=== PATIENT | male | born 1950 | race Caucasian/White ===

== ENCOUNTER → 2016-05-13 | Outpatient (REF) | payer MEDICARE, OTHER ==
[~2016-05-13] MED LIST: AMLO10TA2 PO; ASPI1TAB PO; BACT800T5 PO; SIMV20TA2 PO; VITMTA PO
[2016-05-13 12:34] LABS: ALBUMIN 3.6 GM/DL (3.2-5.2); ALBUMIN/GLOBULIN RATIO 1.09 (1.00-1.93); ALKALINE PHOSPHATASE 56 U/L (45-117); ALT/SGPT 34 U/L (12-78); ANION GAP 8 MEQ/L (8-16); AST/SGOT 28 U/L (15-37); BILIRUBIN,TOTAL 0.4 MG/DL (0.2-1.0); BLOOD UREA NITROGEN 13 MG/DL (7-18); CALCIUM LEVEL 8.8 MG/DL (8.8-10.2); CARBON DIOXIDE LEVEL 28 MEQ/L (21-32); CHLORIDE LEVEL 107 MEQ/L (98-107); CHOLESTEROL LEVEL 178 MG/DL (<200); CREATININE FOR GFR 0.92 MG/DL (0.70-1.30); GLOMERULAR FILTRATION RATE > 60.0 (>49); GLUCOSE, FASTING 94 MG/DL (80-110); SODIUM LEVEL 143 MEQ/L (136-145); TOTAL PROTEIN 6.9 GM/DL (6.4-8.2); TRIGLYCERIDES LEVEL 132 MG/DL (<150)
== END ==
LOC: M LABDRAW1 11:30
PROVIDERS: ATTEND Emergency Medicine
DX: I10 Essential (primary) hypertension (principal); E78.2 Mixed hyperlipidemia; N40.3 Nodular prostate with lower urinary tract symptoms
CPT/HCPCS: 36415; 80053; 80061; G0103

== ENCOUNTER → 2016-08-20 | Outpatient (REF) | payer MEDICARE, OTHER ==
[2016-08-23 20:35] LABS: PSA TOTAL 2.5 ng/mL (0.0-4.0)
== END ==
LOC: M LABDRAW1 11:26
PROVIDERS: ATTEND Urology
DX: R97.20 Elevated prostate specific antigen [PSA] (principal)

== ENCOUNTER → 2017-05-26 | Outpatient (REF) | payer MEDICARE, OTHER ==
[2017-05-26 12:40] LABS: ALBUMIN 3.9 GM/DL (3.2-5.2); ALBUMIN/GLOBULIN RATIO 1.15 (1.00-1.93); ALKALINE PHOSPHATASE 61 U/L (45-117); ALT/SGPT 26 U/L (12-78); ANION GAP 5 MEQ/L (8-16); AST/SGOT 23 U/L (7-37); BILIRUBIN,TOTAL 0.4 MG/DL (0.2-1.0); BLOOD UREA NITROGEN 15 MG/DL (7-18); CALCIUM LEVEL 8.9 MG/DL (8.8-10.2); CARBON DIOXIDE LEVEL 28 MEQ/L (21-32); CHLORIDE LEVEL 110 MEQ/L (98-107); CHOLESTEROL LEVEL 160 MG/DL (<200); CHOLESTEROL RISK RATIO 2.962 (<5); GLOMERULAR FILTRATION RATE > 60.0 (>49); GLUCOSE, FASTING 94 MG/DL (70-100); HDL CHOLESTEROL 54 MG/DL (>40); LDL CHOLESTEROL 83.8 MG/DL (<100); NON-HDL-C 106 MG/DL; POTASSIUM SERUM 4.1 MEQ/L (3.5-5.1); SODIUM LEVEL 143 MEQ/L (136-145); TOTAL PROTEIN 7.3 GM/DL (6.4-8.2); TRIGLYCERIDES LEVEL 111 MG/DL (<150)
== END ==
LOC: M LABDRAW1 11:40
DX: E78.2 Mixed hyperlipidemia (principal); I10 Essential (primary) hypertension
CPT/HCPCS: 80053

== ENCOUNTER → 2017-12-29 | Outpatient (CLI) | payer MEDICARE, OTHER ==
[2017-12-29 08:26] LABS: PROSTATIC SPECIFIC AG MONITOR 2.3 NG/ML (< 4.0)
== END ==
LOC: M LAB 07:20
DX: N42.89 Other specified disorders of prostate (principal)
CPT/HCPCS: G0103

== ENCOUNTER → 2018-05-25 | Outpatient (REF) | payer MEDICARE, OTHER ==
[~2018-05-25] MED LIST changes: -AMLO10TA2 PO; +AMLO10TA5 PO; -ASPI1TAB PO; +ASPI81TA26 PO
[2018-05-25 11:14] LABS: ALT/SGPT 29 U/L (12-78); BILIRUBIN,TOTAL 0.4 MG/DL (0.2-1.0); BLOOD UREA NITROGEN 17 MG/DL (7-18); CALCIUM LEVEL 9.1 MG/DL (8.8-10.2); CARBON DIOXIDE LEVEL 27 MEQ/L (21-32); CHLORIDE LEVEL 108 MEQ/L (98-107); CHOLESTEROL LEVEL 145 MG/DL (<200); CHOLESTEROL RISK RATIO 2.636 (<5); CREATININE FOR GFR 0.89 MG/DL (0.70-1.30); GLOMERULAR FILTRATION RATE > 60.0 (>49); GLUCOSE, FASTING 101 MG/DL (70-100); HDL CHOLESTEROL 55 MG/DL (>40); LDL CHOLESTEROL 75 MG/DL (<100); NON-HDL-C 90 MG/DL; POTASSIUM SERUM 4.4 MEQ/L (3.5-5.1); PROSTATIC SPECIFIC AG MONITOR 2.62 NG/ML (< 4.00); SODIUM LEVEL 140 MEQ/L (136-145); TOTAL PROTEIN 6.8 GM/DL (6.4-8.2); TRIGLYCERIDES LEVEL 77 MG/DL (<150)
== END ==
LOC: M LABDRAW1 10:35
PROVIDERS: ATTEND Physician Assistant
DX: I10 Essential (primary) hypertension (principal); E78.2 Mixed hyperlipidemia; R97.20 Elevated prostate specific antigen [PSA]

== ENCOUNTER → 2018-09-28 | Outpatient (REF) | payer MEDICARE, OTHER ==
[2018-09-28 12:30] LABS: BASO % 0.6 % (0.0-1.0); EOS # 0.3 10^3/uL (0.0-0.50); EOS % 6.3 % (0.0-3.0); HEMATOCRIT 42.8 % (42.0-52.0); LYMPH # 1.5 10^3/uL (1.5-4.5); LYMPH % 30.8 % (24.0-44.0); MEAN CORPUSCULAR HEMOGLOBIN 29.2 pg (27.0-33.0); MEAN CORPUSCULAR HGB CONC 32.7 g/dl (32.0-36.5); MEAN CORPUSCULAR VOLUME 89.2 fl (80.0-96.0); MONO # 0.6 10^3/uL (0.0-0.8); MONO % 12.1 % (0.0-5.0); NEUTROPHILS # 2.4 10^3/uL (1.8-7.7); PLATELET COUNT, AUTOMATED 323 10^3/uL (150-450); WHITE BLOOD COUNT 4.8 10^3/uL (4.0-10.0)
[2018-09-28 12:44] LABS: ALT/SGPT 39 U/L (12-78); BILIRUBIN,TOTAL 0.4 MG/DL (0.2-1.0); BLOOD UREA NITROGEN 23 MG/DL (7-18); CALCIUM LEVEL 9.5 MG/DL (8.8-10.2); CARBON DIOXIDE LEVEL 31 MEQ/L (21-32); CHLORIDE LEVEL 103 MEQ/L (98-107); CREATININE FOR GFR 0.95 MG/DL (0.70-1.30); GLOMERULAR FILTRATION RATE > 60.0 (>49); GLUCOSE, FASTING 97 MG/DL (70-100); POTASSIUM SERUM 3.9 MEQ/L (3.5-5.1); SODIUM LEVEL 140 MEQ/L (136-145); TOTAL PROTEIN 7.1 GM/DL (6.4-8.2)
== END ==
LOC: M LABDRAW1 11:39
PROVIDERS: ATTEND Physician Assistant
DX: I10 Essential (primary) hypertension (principal); R53.83 Other fatigue

== ENCOUNTER → 2019-04-22 | Outpatient (REF) | payer MEDICARE, OTHER ==
[~2019-04-22] MED LIST changes: -SIMV20TA2 PO; +SIMV20TA22 PO
[2019-04-22 11:22] LABS: ALBUMIN 3.9 GM/DL (3.2-5.2); ALT/SGPT 34 U/L (12-78); BILIRUBIN,TOTAL 0.4 MG/DL (0.2-1.0); BLOOD UREA NITROGEN 13 MG/DL (7-18); CALCIUM LEVEL 9.1 MG/DL (8.8-10.2); CARBON DIOXIDE LEVEL 29 MEQ/L (21-32); CHLORIDE LEVEL 108 MEQ/L (98-107); CHOLESTEROL LEVEL 170 MG/DL (<200); CHOLESTEROL RISK RATIO 3.148 (<5); CREATININE FOR GFR 0.88 MG/DL (0.70-1.30); FREE T4 1.12 NG/DL (0.76-1.46); GLOMERULAR FILTRATION RATE > 60.0 (>49); GLUCOSE, FASTING 110 MG/DL (70-100); HDL CHOLESTEROL 54 MG/DL (>40); LDL CHOLESTEROL 88 MG/DL (<100); NON-HDL-C 116 MG/DL; POTASSIUM SERUM 4.3 MEQ/L (3.5-5.1); PROSTATIC SPECIFIC AG MONITOR 2.43 NG/ML (< 4.00); SODIUM LEVEL 141 MEQ/L (136-145); TOTAL PROTEIN 7.3 GM/DL (6.4-8.2); TRIGLYCERIDES LEVEL 138 MG/DL (<150)
== END ==
LOC: M LABDRAW1 07:50
PROVIDERS: ATTEND Physician Assistant
DX: I10 Essential (primary) hypertension (principal); R97.20 Elevated prostate specific antigen [PSA]; E03.9 Hypothyroidism, unspecified

== ENCOUNTER → 2019-08-11 | Outpatient (CLI) | payer MEDICARE, OTHER ==
[2019-08-11 11:36] LABS: THYROID STIMULATING HORMONE 6.03 uIU/ML (0.358-3.740)
== END ==
LOC: M LAB 09:56
PROVIDERS: ATTEND Physician Assistant
DX: E03.9 Hypothyroidism, unspecified (principal)

== ENCOUNTER → 2020-01-17 | Outpatient (CLI) | payer SELFPAY ==
[~2020-01-17] MED LIST changes: -AMLO10TA5 PO; +AMLO1TAB25 PO
== END ==
LOC: M LABSMTC 09:25
PROVIDERS: ATTEND Pediatrics
DX: Z11.59 Encounter for screening for other viral diseases (principal)

== ENCOUNTER → 2020-02-16 | Outpatient (CLI) | payer MEDICARE, OTHER ==
[2020-02-16 10:42] LABS: FREE T4 0.97 NG/DL (0.76-1.46); PROSTATIC SPECIFIC AG MONITOR 3.02 NG/ML (< 4.00); THYROID STIMULATING HORMONE 7.62 uIU/ML (0.358-3.740)
== END ==
LOC: M LAB 09:41
PROVIDERS: ATTEND Nurse Practitioner Family
DX: E03.9 Hypothyroidism, unspecified (principal); R97.20 Elevated prostate specific antigen [PSA]

== ENCOUNTER 2020-02-27 15:30 | Emergency (ER) | payer MEDICARE, OTHER ==
[~2020-02-27] VITALS: Ht 172.7 cm; Wt 84.1 kg
--- OUTSIDE RECORDS SUMMARY | 2020-02-27 15:38 | CCD ---
Author Author [facility] Organization [facility] Address Unknown Phone Unavailable Care Team Providers Care Telephone Surveyor Name Role Phone Scordo, M Mindy PA Unavailable Unavailable Scordo, M Mindy PA Unavailable Unavailable Scordo, M Mindy PA Unavailable Unavailable Scordo, M Mindy PA Unavailable Unavailable Scordo, M Mindy PA Unavailable Unavailable Scordo, M Mindy PA Unavailable Unavailable Scordo, M Mindy PA Unavailable Unavailable Scordo, M Mindy PA Unavailable Unavailable Scordo, M Mindy PA Unavailable Unavailable Scordo, M Mindy PA Unavailable Unavailable Scordo, M Mindy PA Unavailable Unavailable Scordo, M Mindy PA Unavailable Unavailable Scordo, M Mindy PA Unavailable Unavailable Scordo, M Mindy PA Unavailable Unavailable Scordo, M Mindy PA Unavailable Unavailable Scordo, M Mindy PA Unavailable Unavailable Scordo, M Mindy PA Unavailable Unavailable Scordo, M Mindy PA Unavailable Unavailable Scordo, M Mindy PA Unavailable Unavailable Scordo, M Mindy PA Unavailable Unavailable Scordo, M Mindy PA Unavailable Unavailable Scordo, M Mindy PA Unavailable Unavailable Scordo, M Mindy PA Unavailable Unavailable Scordo, M Mindy PA Unavailable Unavailable Scordo, M Mindy PA Unavailable Unavailable Scordo, M Mindy PA Unavailable Unavailable Scordo, M Mindy PA Unavailable Unavailable Scordo, M Mindy PA Unavailable Unavailable Scordo, M Mindy PA Unavailable Unavailable Scordo, M Mindy PA Unavailable Unavailable Scordo, M Mindy PA Unavailable Unavailable Scordo, M Mindy PA Unavailable Unavailable Scordo, M Mindy PA Unavailable Unavailable Scordo, M Mindy PA Unavailable Unavailable Scordo, M Mindy PA Unavailable Unavailable Scordo, M Mindy PA Unavailable Unavailable Scordo, M Mindy PA Unavailable Unavailable Scordo, M Mindy PA Unavailable Unavailable Scordo, M Mindy PA Unavailable Unavailable Scordo, M Mindy PA Unavailable Unavailable Pleskach, Simin EARLY INTERVENTION SPECIALIST Unavailable Unavailable Pleskach, Simin EARLY INTERVENTION SPECIALIST Unavailable Unavailable Pleskach, Simin EARLY INTERVENTION SPECIALIST Unavailable Unavailable Pleskach, Simin EARLY INTERVENTION SPECIALIST Unavailable Unavailable Pleskach, Simin EARLY INTERVENTION SPECIALIST Unavailable Unavailable Pleskach, Simin EARLY INTERVENTION SPECIALIST Unavailable Unavailable Pleskach, Simin EARLY INTERVENTION SPECIALIST Unavailable Unavailable Pleskach, Simin EARLY INTERVENTION SPECIALIST Unavailable Unavailable Pleskach, Simin EARLY INTERVENTION SPECIALIST Unavailable Unavailable Pleskach, Simin EARLY INTERVENTION SPECIALIST Unavailable Unavailable Pleskach, Simin EARLY INTERVENTION SPECIALIST Unavailable Unavailable Pleskach, Simin EARLY INTERVENTION SPECIALIST Unavailable Unavailable Pleskach, Simin EARLY INTERVENTION SPECIALIST Unavailable Unavailable Pleskach, Simin EARLY INTERVENTION SPECIALIST Unavailable Unavailable Pleskach, Simin EARLY INTERVENTION SPECIALIST Unavailable Unavailable Pleskach, Simin EARLY INTERVENTION SPECIALIST Unavailable Unavailable Pleskach, Simin EARLY INTERVENTION SPECIALIST Unavailable Unavailable Pleskach, Simin EARLY INTERVENTION SPECIALIST Unavailable Unavailable Pleskach, Simin EARLY INTERVENTION SPECIALIST Unavailable Unavailable Pleskach, Simin EARLY INTERVENTION SPECIALIST Unavailable Unavailable Pleskach, Simin EARLY INTERVENTION SPECIALIST Unavailable Unavailable Pleskach, Simin EARLY INTERVENTION SPECIALIST Unavailable Unavailable Pleskach, Simin EARLY INTERVENTION SPECIALIST Unavailable Unavailable Pleskach, Simin EARLY INTERVENTION SPECIALIST Unavailable Unavailable Pleskach, Simin EARLY INTERVENTION SPECIALIST Unavailable Unavailable Pleskach, Simin EARLY INTERVENTION SPECIALIST Unavailable Unavailable Pleskach, Simin EARLY INTERVENTION SPECIALIST Unavailable Unavailable Pleskach, Simin EARLY INTERVENTION SPECIALIST Unavailable Unavailable Re-disclosure Warning The records that you are about to access may contain information from federally-assisted alcohol or drug abuse programs. If such information is present, then the following federally mandated warning applies: This information has been disclosed to you from records protected by federal confidentiality rules (42 CFR part 2). The federal rules prohibit you from making any further disclosure of this information unless further disclosure is expressly permitted by the written consent of the person to whom it pertains or as otherwise permitted by 42 CFR part 2. A general authorization for the release of medical or other information is NOT sufficient for this purpose. The Federal rules restrict any use of the information to criminally investigate or prosecute any alcohol or drug abuse patient.The records that you are about to access may contain highly sensitive health information, the redisclosure of which is protected by Article 27-F of the [facility] Public Health law. If you continue you may have access to information: Regarding HIV / AIDS; Provided by facilities licensed or operated by the [facility] Office of Mental Health; or Provided by the [facility] Office for People With Developmental Disabilities. If such information is present, then the following [facility] mandated warning applies: This information has been disclosed to you from confidential records which are protected by state law. State law prohibits you from making any further disclosure of this information without the specific written consent of the person to whom it pertains, or as otherwise permitted by law. Any unauthorized further disclosure in violation of state law may result in a fine or nursing home sentence or both. A general authorization for the release of medical or other information is NOT sufficient authorization for further disc losure. Family History Family Member Name Family Member Gender Family Member Status Date o f Status Description Data Source(s) Unknown Unknown Problem [facility] ([facility] Unknown Female Problem [facility] ([facility] ) Unknown Female Problem [facility] ([facility] [place]) Encounters Encounter Providers Location Date Indications Data Source(s ) Outpatient Attender: Simin Gu [facility] Main Office 11/16/2019 0 8:30:00 AM EDT [facility] ([facility] Outpatient Attender: Mindy REYNA Main Office 08/19/2019 09:00:00 AM EDT [facility] ([facility] Outpatient Attender: Mindy REYNA Main Office 06/02/2019 09:45:00 AM EDT [facility] ([facility] Outpatient Attender: Mindy REYNA Main Office 01/04/2019 06:30:00 AM EST [facility] ([facility] Immunizations Vaccine Date Status Description Data Source(s) INFLUENZA VACCINE QUADRIVALENT 2020-21 (65 YR UP)/MF59 C.1/PF 11/10/2019 12:00:00 AM EDT completed [facility] New in 2012. IIV4 11/09/2019 08:34:00 AM EDT completed [facility] ([facility] pneumococcal polysaccharide PPV23 08/19/2019 09:37:00 AM EDT comple contreras [facility] ([facility] Medications Medication Brand Name Start Date Product Form Dose Route Admi nistrative Instructions Pharmacy Instructions Status Indications Reaction Description Data Source(s) 25 mg 10/10/2019 12:00:00 AM EDT tablet 30 TAKE 1 TABLET BY MOUTH 3 TIMES A DAY NEEDED FOR ITCHING/HIVES FOR 10 DAYS MAY CAUSE DROWSINESS TAKE 1 TABLET BY MOUTH 3 TIMES A DAY NEEDED FOR ITCHING/HIVES FOR 10 DAYS MAY CAUSE DROWSINESS SOLD: 10/10/2019 [facility] Levothyroxine Sodium 0.025 MG Oral Tablet Levothyroxine Sodi um 01/04/2019 12:00:00 AM EST ORAL active M [facility] ([facility] Levothyroxine Sodium 0.025 MG Oral Tablet Levothyroxine Sodi um 10/04/2018 12:00:00 AM EDT completed [facility] ([facility] Insurance Providers Payer name Policy type / Coverage type Policy ID Covered constitution party ID Covered constitution party's relationship to sampson Policy Sampson Plan Information MEDICARE [id number] SP [id number] FOR LIFE [id number] SP [id number] SELF PAY ONLY [id number] SP [id number] [place] Medigap Part B [id number] Self [id number] For Life Medigap Part B [id number] Self [id number] Medicare Medigap Part B [id number] Self [id number] Medicare Medicare Primary [id number] Self [id number] For Life Medigap Part B [id number] [facility] [id number] [place] Primary [id number] Self [id number] MEDICARE [id number] SP [id number] A [place] Medigap Part B [id number] Self [id number] For Life Medigap Part B [id number] Self [id number] Medicare Medigap Part B [id number] Self [id number] Medicare Medicare Primary [id number] Self [id number] [place] Medigap Part B [id number] Self [id number] For Life Medigap Part B [id number] Self [id number] Medicare Medicare Primary [id number] Self [id number] For Life Medigap Part B [id number] Self [id number] Medicare [place] Medicare Primary [id number] Self [id number] [place] Medigap Part B [id number] Self [id number] For Life Medigap Part B [id number] Self [id number] Medicare Medicare Primary [id number] Self [id number] [place] Medigap Part B [id number] Self [id number] For Life Medigap Part B [id number] Self [id number] Medicare Medicare Primary [id number] Self [id number] For Life Medigap Part B [id number] Self [id number] [place] Medicare Primary [id number] Self [id number] For Life Medigap Part B [id number] Self [id number] [place] Medicare Primary [id number] Self [id number] Medicare [place] Medicare Primary Self Health Net Federal [employer] Commercial Self [place] [employer] (TFL) Medigap Part B Self Medicare [facility] Medicare Primary Self Medicare Medicare Primary Self ACTIVE DUTY [id number] SP [id number] Results ID Date Data Source [id number] 02/16/2020 09:48:00 AM EST [facility] ([facility] Name Value Range Interpretation Code Description Data Bianca rce(s) Supporting Document(s) Prostate specific Ag [Mass/volume] in Serum or Plasma 3.02 ng/mL [facility] The PSA assay is performed on the Labelby.meta analyzer by LOCI sandwich chemiluminescent immunoassay and should not be compared interchangeably with other methods. It should not be used alone as a screening test or diagnosis for the presence or absence of malignant disease. Predictions of disease recurrence should not be based solely on values obtained from serial patient serum values. ID Date Data Source [id number] 02/16/2020 09:48:00 AM EST [facility] Name Value Range Interpretation Code Description Data Bianca rce(s) Supporting Document(s) Thyrotropin [Units/volume] in Serum or Plasma 7.620 uIU/ML 0.358-3.74 0 [facility] Thyroxine (T4) free [Mass/volume] in Serum or Plasma 0.97 ng/dL 0.76- 1.46 [facility] ID Date Data Source [id number] 01/17/2020 12:00:00 AM EST [facility] Name Value Range Interpretation Code Description Data Bianca rce(s) Supporting Document(s) 2019-nCoV RNA XXX JUAN JOSÉ+probe-Imp [facility] This lab was ordered by [facility] and reported by [employer]. ID Date Data Source [id number] 08/11/2019 10:21:00 AM EDT [facility] Name Value Range Interpretation Code Description Data Bianca rce(s) Supporting Document(s) Thyroxine (T4) [Mass/volume] in Serum or Plasma 11.0 ug/dL 4.5-12.0 [facility] Thyrotropin [Units/volume] in Serum or Plasma 6.030 uIU/ML 0.358-3.74 0 [facility] ID Date Data Source [id number] 04/22/2019 07:50:00 AM EDT [facility] ([facility] Name Value Range Interpretation Code Description Data Bianca rce(s) Supporting Document(s) Free T4 1.12 ng/dL 0.76-1.46 [facility] ([facility] Thyroid Stimulating Hormone 9.930 uIU/ML 0.358-3.740 [facility] ID Date Data Source [id number] 04/22/2019 07:50:00 AM EDT [facility] Name Value Range Interpretation Code Description Data Bianca rce(s) Supporting Document(s) Prostate specific Ag [Mass/volume] in Serum or Plasma 2.43 ng/mL [facility] The PSA assay is performed on the Güven[employer]hberi analyzer by LOCI sandwich chemiluminescent immunoassay and should not be compared interchangeably with other methods. It should not be used alone as a screening test or diagnosis for the presence or absence of malignant disease. Predictions of disease recurrence should not be based solely on values obtained from serial patient serum values. ID Date Data Source [id number] 04/22/2019 07:50:00 AM EDT [facility] Name Value Range Interpretation Code Description Data Bianca rce(s) Supporting Document(s) Triglycerides Level 138 mg/dL [facility] Cholesterol Level 170 mg/dL [facility] LDL Cholesterol 88 mg/dL [facility] HDL Cholesterol 54 mg/dL [facility] Non-HDL-C 116 mg/dL [facility] Cholesterol Risk Ratio 3.148 [facility] ID Date Data Source [id number] 04/22/2019 07:50:00 AM EDT [facility] Name Value Range Interpretation Code Description Data Bianca rce(s) Supporting Document(s) Blood Urea Nitrogen 13 mg/dL 7-18 [facility] Glucose, Fasting 110 mg/dL 70-100 [facility] Creatinine For GFR 0.88 mg/dL 0.70-1.30 [facility] Glomerular Filtration Rate Laboratory test result [facility] <content>Units are mL/min/1.73 m2</content>
<content></content>
<content>Chronic Kidney Disease Staging per NKF:</content>
<content></content>
<content>Stage I & II GFR >=60 Normal to Mildly Decreased</content>
<content>Stage III GFR 30- 59 Moderately Decreased</content>
<content>Stage IV GFR 15-29 Severely Decreased</content>
<content>Stage V GFR <15 Very Little GFR Left</content>
<content>ESRD GFR <15 on AMBULATORY CARE COORDINATOR</content>
<content></content> Potassium Serum 4.3 meq/L 3.5-5.1 [facility] Sodium Level 141 meq/L 136-145 [facility] Anion Gap 4 meq/L 8-16 [facility] Carbon Dioxide Level 29 meq/L 21-32 [facility] Chloride Level 108 meq/L 98-107 [facility] Calcium Level 9.1 mg/dL 8.8-10.2 [facility] Ast/Sgot 22 U/L 7-37 [facility] Alkaline Phosphatase 65 U/L 45-117 [facility] Bilirubin,Total 0.4 mg/dL 0.2-1.0 [facility] Alt/SGPT 34 U/L 12-78 [facility] Albumin 3.9 GM/DL 3.2-5.2 [facility] Total Protein 7.3 GM/DL 6.4-8.2 [facility] Albumin/Globulin Ratio 1.15 1.00-1.93 ME [facility] ([facility] Procedure Social History Code Duration Value Status Description Data Source(s ) Smoking 11/16/2019 12:00:00 AM EDT Patient has never smoked co mpleted Patient has never smoked [facility] Vital Signs ID Date Data Source UNK Name Value Range Interpretation Code Description Data Source(s) Body mass index (BMI) [Ratio] 28.2 kg/m2 28.2 k g/m2 [facility] [place] body weight 148 [lb_av] 148 [lb_av] [facility] T ([facility] Oxygen saturation in Arterial blood by Pulse oximetry 98 % 98 % [facility] Body weight 184.00 [lb_av] 184.00 [lb_av] [facility] T [facility] Body height 67.75 [in_i] 67.75 [in_i] [facility] 5'7.75" Respiratory rate 18 /min 18 /min [facility] ( [facility] Body temperature 97.5 [degF] 97.5 [degF] [facility] Heart rate 81 /min 81 /min [facility] Diastolic blood pressure 76 mm[Hg] 76 mm[Hg] [facility] Systolic blood pressure 142 mm[Hg] 142 mm[Hg] M [facility] Body mass index (BMI) [Ratio] 28.4 kg/m2 28.4 k g/m2 [facility] [place] body weight 148 [lb_av] 148 [lb_av] [facility] T [facility] Oxygen saturation in Arterial blood by Pulse oximetry 98 % 98 % [facility] Body weight 185.50 [lb_av] 185.50 [lb_av] [facility] T ([facility] Body height 67.75 [in_i] 67.75 [in_i] [facility] 5'7.75" Respiratory rate 18 /min 18 /min [facility] ( [facility] Body temperature 98.6 [degF] 98.6 [degF] [facility] Heart rate 77 /min 77 /min [facility] Diastolic blood pressure 74 mm[Hg] 74 mm[Hg] [facility] Systolic blood pressure 153 mm[Hg] 153 mm[Hg] M [facility] ([facility] Body mass index (BMI) [Ratio] 28.7 kg/m2 28.7 k g/m2 [facility] Oxygen saturation in Arterial blood by Pulse oximetry 98 % 98 % [facility] Body weight 187.25 [lb_av] 187.25 [lb_av] [facility] T ([facility] Body height 67.75 [in_i] 67.75 [in_i] [facility] 5'7.75" Respiratory rate 16 /min 16 /min [facility] ( [facility] Body temperature 97.7 [degF] 97.7 [degF] [facility] Heart rate 70 /min 70 /min [facility] Diastolic blood pressure 65 mm[Hg] 65 mm[Hg] [facility] Systolic blood pressure 128 mm[Hg] 128 mm[Hg] M [facility] ([facility]
--- OUTSIDE RECORDS SUMMARY | 2020-02-27 15:38 | CCD | Continuity of Care Document ---
Author Author Luis GU [facility] Organization Unknown Address [address] [place] [address] Phone [phone] Care Team Providers Care Gemologist Name Role Phone Jose Huerta M.D. AUTM [phone] [facility] AUTM Unavailable Cade Jensen DR. AUTM [phone] Marsha Torres DDS AUTM [phone] Adrian Alexander MD AUTM [phone] [facility] AUTM [phone] Problems Active Problems Provider Date Current tear of medial cartilage AND/OR meniscus of knee Onset: 11/08/1999 Mitral valve disorder Derrek Hernandez M.D. Onset: 05/10 Mixed hyperlipidemia Derrek Hernandez M.D. Onset: 03/25 Essential hypertension Derrek Hernandez M.D. Onset: Social History Type Date Description Comments Sex Unknown Tobacco Use Start: Unknown Never Used Smokeless Tobacco ETOH Use Occasionally consumes alcohol Recreational Drug Use Denies Drug Use Tobacco Use Start: Unknown Patient has never smoked Smoking Status Reviewed: 11/16/19 Patient has never smoked Exercise Type/Frequency Exercises regularly Sun Exposure Moderate amount of sun exposure Sun Exposure Does not use sunscreen Seat Belt/Car Seat Always uses seat belt Bike Helmet Always Smoke Alarms Yes Smoke Alarms Carbon Monoxide Detector: Yes Allergies, Adverse Reactions, Alerts Description No Known Drug Allergies Medications Active Medications SIG Qnty Indications Ordering Provide r Date Simvastatin 20mg Tablets take 1 tablet daily 90tabs E78.2 Simin GuSUMAN 11/30/2012 Amlodipine Besylate 10mg Tablets take 1 tablet daily for blood pressure 90tabs I10 Simin GuSUMAN 05/27/2011 Multivitamin One Tablet Daily Unknown Aspir-[address] 1 by mouth every day 100tabs Unknown Co Q10 200mg Capsules one jayla ly Unknown Glucosamine Chondroitin Maximum Strength Capsules bid Unknown Immunizations CPT Code Status Date Vaccine Lot # [id number] Given 11/09/2019 Influenza Virus Vaccine, Quadrivalent,age 3 and up,multidose vial [id number] Given 08/19/2019 Pneumococcal Vaccine [id number] Given 12/08/2018 Influenza Virus Vaccine, Quadrivalent,age 3 and up,multidose vial [id number] Given 06/23/2018 Prevnar 13 For Adults [id number] 91029 Given 12/17/2015 Influenza Vaccination 23853 Given 11/30/2012 Influenza Vaccination [id number] Refused 06/01/2015 Prevnar 13 For Adults 17046 Refused 06/01/2015 Zostavax [id number] Refused 06/01/2015 Pneumococcal Vaccine Vital Signs Date Vital Result Comment 11/16/2019 8:33am BP Systolic 142 mmHg BP Diastolic 76 mmHg Heart Rate 81 /min Body Temperature 97.5 F Respiratory Rate 18 /min Height 67.75 inches 5'7.75" Weight 184.00 lb O2 % BldC Oximetry 98 % Peak Expiratory Flow Rate 454 Estimated Peak Flow Rate [place] Body Weight 148 lb BMI (Body Mass Index) 28.2 kg/m2 08/19/2019 9:05am BP Systolic 153 mmHg BP Diastolic 74 mmHg Heart Rate 77 /min Body Temperature 98.6 F Respiratory Rate 18 /min Height 67.75 inches 5'7.75" Weight 185.50 lb O2 % BldC Oximetry 98 % Peak Expiratory Flow Rate 456 Estimated Peak Flow Rate [place] Body Weight 148 lb BMI (Body Mass Index) 28.4 kg/m2 Results Test Acquired Date Facility Test Result H/L Range Note TSH And T4 Free ([facility]) 02/16/2020 [facility] [phone] Thyroid Stimulating Hormone 7.620 uIU/ML High 0. 358-3.740 Free T4 0.97 ng/dL Normal 0.76-1.46 Laboratory test finding 02/16/2020 [facility] [phone] Prostatic Specific Ag Monitor 3.02 NG/ML Normal < 4.00 1 1 The PSA assay is performed o n the Siemens Dane analyzer by LOCI sandwich chemiluminescent immunoassay and should not be compared interchangeably with other methods. It should not be used alone as a screening test or diagnosis for the presence or absence of malignant disease. Predictions of disease recurrence should not be based solely on values obtained from serial patient serum values. Procedures Description No Information Available Medical Devices Description No Information Available Encounters Type Date Location Provider Dx Diagnosis Office Visit 11/16/2019 8:30a Main Office Simin Gu, DIRECTOR TELEHEALTH I10 Essential (primary) hypertension E03.9 Hypothyroidism, unspecified E78.2 Mixed hyperlipidemia R97.20 Elevated prostate specific a ntigen [PSA] Office Visit 08/19/2019 9:00a Main Office Mindy Kern PA-C I10 Essential (primary) hypertension E03.9 Hypothyroidism, unspecified E78.2 Mixed hyperlipidemia R97.20 Elevated prostate specific a ntigen [PSA] Z23 Encounter for immunization Z13.89 Encounter for screening for other disorder Assessments Date Code Description Provider 11/16/2019 I10 Essential (primary) hypertension Simin Gu, DIRECTOR TELEHEALTH 11/16/2019 E03.9 Hypothyroidism, unspecified Ples Simin nunez, DIRECTOR TELEHEALTH 11/16/2019 E78.2 Mixed hyperlipidemia Luiz Gu, DIRECTOR TELEHEALTH 11/16/2019 R97.20 Elevated prostate specific antig en [PSA] Simin Gu, DIRECTOR TELEHEALTH 08/19/2019 I10 Essential (primary) hypertension Mindy Kern PA-C 08/19/2019 E03.9 Hypothyroidism, unspecified Scor Mindy ocampo PA-C 08/19/2019 E78.2 Mixed hyperlipidemia Martha Kern PA-C 08/19/2019 R97.20 Elevated prostate specific antig en [PSA] Mindy Kern PA-C 08/19/2019 Z23 Encounter for immunization Mindy Newman PA-C 08/19/2019 Z13.89 Encounter for screening for othe r disorder Mindy Kern PA-C Plan of Treatment Future Appointment(s):* 05/16/2020 8:00 am - Simin Gu FNP at Main Office 11/16/2019 - Simin Gu FNP* I10 Essential (primary) hypertension* Comments:* controlled, continue current medications * E03.9 Hypothyroidism, unspecified* Comments:* Discussed subclinical vs overt hypothyroid. At this point patient has subclinical. We agreed to monitor for now. Will check labs every 6 months and if his T4 drops will then initiate treatment. Patient is agreeable with this plan * Follow up:* 6 months * E78.2 Mixed hyperlipidemia* Comments:* continue statin * R97.20 Elevated prostate specific antigen [PSA] Functional Status Functional Condition Comment Date Status Independent with all ADL's Activ e Glasses Active Independent with all IADL's Acti ve Mental Status Mental Condition Comment Date Status None Active Referrals Description No Information Available
--- OUTSIDE RECORDS SUMMARY | 2020-02-27 15:38 | CCD | Continuity of Care Document ---
Author Author Luis ANDERSON PA-C Organization Unknown Address [address] [place] [address] Phone [phone] Care Team Providers Care Sports Book Server Name Role Phone Jose Huerta M.D. AUTM [phone] [facility] AUTM Unavailable Cade Jensen DR. AUTM [phone] Marsha Torres DDS AUTM [phone] Adrian Alexander MD AUTM [phone] [facility] [place] [facility] AUTM Problems Active Problems Provider Date Current tear [...] CPT Code Status Date Vaccine Lot # [id number] Given 11/09/2019 Influenza Virus Vaccine, Quadrivalent,age 3 and up,multidose vial [id number] Given 08/19/2019 Pneumococcal Vaccine [id number] 56146 Given 12/08/2018 Influenza Virus Vaccine, Quadrivalent,age 3 and up,multidose vial 56245 Given 06/23/2018 Prevnar 13 For Adults [id number] 61820 Given 12/17/2015 Influenza Vaccination 73859 Given 11/30/2012 Influenza Vaccination [id number] [id number] Refused 06/01/2015 Prevnar 13 For Adults 74342 Refused 06/01/2015 Zostavax [id number] Refused 06/01/2015 Pneumococcal Vaccine Vital Signs Date Vital Result Comment 11/16/2019 8:33am BP Systolic 142 mmHg BP Diastolic 76 mmHg Heart Rate 81 /min Body Temperature 97.5 F Respiratory Rate 18 /min Height 67.75 inches 5'7.75" Weight 184.00 lb O2 % BldC Oximetry 98 % Peak Expiratory Flow Rate 454 Estimated Peak Flow Rate Welch Body Weight 148 lb BMI (Body Mass Index) 28.2 kg/m2 08/19/2019 9:05am BP Systolic 153 mmHg BP Diastolic 74 mmHg Heart Rate 77 /min Body Temperature 98.6 F Respiratory Rate 18 /min Height 67.75 inches 5'7.75" Weight 185.50 lb O2 % BldC Oximetry 98 % Peak Expiratory Flow Rate 456 Estimated Peak Flow Rate [place] Body Weight 148 lb BMI (Body Mass Index) 28.4 kg/m2 Results Test Acquired Date Facility Test Result H/L Range Note Laboratory test finding 08/11/2019 [place] [address] [phone] Thyroxine (T4) 11.0 g/dL Normal 4.5-12.0 Thyroid Stimulating Hormone 6.030 uIU/ML High 0.358-3.740 Procedures Description No Information Available Medical Devices Description No Information Available Encounters Type Date Location Provider Dx Diagnosis Office Visit 11/16/2019 8:30a Main Office Simin Gu FNP I10 Essential (primary) hypertension E03.9 Hypothyroidism, unspecified E78.2 Mixed hyperlipidemia R97.20 Elevated prostate specific a ntigen [PSA] Office Visit 08/19/2019 9:00a Main Office Mindy Anderson PA-C I10 Essential (primary) hypertension E03.9 Hypothyroidism, unspecified E78.2 Mixed hyperlipidemia R97.20 Elevated prostate specific a ntigen [PSA] Z23 Encounter for immunization Z13.89 Encounter for screening for other disorder Assessments Date Code Description Provider 11/16/2019 I10 Essential (primary) hypertension Simin Gu FNP 11/16/2019 E03.9 Hypothyroidism, unspecified Ples Simin nunez FNP 11/16/2019 E78.2 Mixed hyperlipidemia Luiz Gu FNP 11/16/2019 R97.20 Elevated prostate specific antig en [PSA] Simin Gu FNP 08/19/2019 I10 Essential (primary) hypertension Mindy Anderson PA-C 08/19/2019 E03.9 Hypothyroidism, unspecified Mindy Oliver do, PA-C 08/19/2019 E78.2 Mixed hyperlipidemia Martha Anderson PA-C 08/19/2019 R97.20 Elevated prostate specific antig en [PSA] Mindy Anderson PA-C 08/19/2019 Z23 Encounter for immunization Mindy Newman PA-C 08/19/2019 Z13.89 Encounter for screening for othe r disorder Mindy Anderson PA-C Plan of Treatment Future Appointment(s):* 05/16/2020 8:00 am - Simin Gu FNP at Main Office 11/16/2019 - Simin Gu FNP* I10 Essential (primary) hypertension* Comments:* controlled, continue current medications * E03.9 Hypothyroidism, unspecified* New Labs:* TSH And T4 Free ([facility]), Scheduled: 11/16/19 * Comments:* Discussed subclinical vs overt hypothyroid. At [...]
--- NOTE | 2020-02-27 16:52 | REP ---
INDICATION: near syncope. COMPARISON: Comparison chest x-ray August 08, 2015. TECHNIQUE: Two views.. FINDINGS: The lungs are well inflated and free of infiltrate. The pleural angles are sharp. The heart size is normal. Pulmonary vasculature is not increased. No significant bony abnormality is seen. There are degenerative disc changes in the thoracic spine again noted. IMPRESSION: No active disease.. <Electronically signed by Sunny Miramontes > 02/27/20 [id number]
[2020-02-27] MEDS ORDERED: NS 1,000 ML IV ONE (17:15)
[2020-02-27 17:21] LABS: BASO % 0.7 % (0.0-1.0); EOS # 0.1 10^3/uL (0.0-0.5); EOS % 1.8 % (0.0-3.0); HEMATOCRIT 47.7 % (42.0-52.0); HEMOGLOBIN 15.7 g/dl (13.5-17.5); LYMPH # 1.4 10^3/uL (1.5-5.0); LYMPH % 23.6 % (24.0-44.0); MEAN CORPUSCULAR HEMOGLOBIN 29.7 pg (27.0-33.0); MEAN CORPUSCULAR HGB CONC 32.9 g/dl (32.0-36.5); MEAN CORPUSCULAR VOLUME 90.3 fl (80.0-96.0); MONO # 0.8 10^3/uL (0.0-0.8); MONO % 12.5 % (0.0-5.0); NEUTROPHILS # 3.7 10^3/uL (1.5-8.5); NEUTROPHILS % 61.2 % (36.0-66.0); PLATELET COUNT, AUTOMATED 338 10^3/uL (150-450); RED BLOOD COUNT 5.28 10^6/uL (4.30-6.10)
--- OUTSIDE RECORDS SUMMARY | 2020-02-27 17:36 | CCD ---
Author Author [facility] Organization [facility] Address Unknown Phone Unavailable Care Team Providers Care Glove Maker Name Role Phone Scordo, M Mindy PA [...] M Mindy PA Unavailable Unavailable Pleskach, Simin MEAT CARRIER Unavailable Unavailable Pleskach, Simin MEAT CARRIER Unavailable Unavailable Pleskach, Simin MEAT CARRIER Unavailable Unavailable Pleskach, Simin MEAT CARRIER Unavailable Unavailable Pleskach, Simin MEAT CARRIER Unavailable Unavailable Pleskach, Simin MEAT CARRIER Unavailable Unavailable Pleskach, Simin MEAT CARRIER Unavailable Unavailable Pleskach, Simin MEAT CARRIER Unavailable Unavailable Pleskach, Simin MEAT CARRIER Unavailable Unavailable Pleskach, Simin MEAT CARRIER Unavailable Unavailable Pleskach, Simin MEAT CARRIER Unavailable Unavailable Pleskach, Simin MEAT CARRIER Unavailable Unavailable Pleskach, Simin MEAT CARRIER Unavailable Unavailable Pleskach, Simin MEAT CARRIER Unavailable Unavailable Pleskach, Simin MEAT CARRIER Unavailable Unavailable Pleskach, Simin MEAT CARRIER Unavailable Unavailable Pleskach, Simin MEAT CARRIER Unavailable Unavailable Pleskach, Simin MEAT CARRIER Unavailable Unavailable Pleskach, Simin MEAT CARRIER Unavailable Unavailable Pleskach, Simin MEAT CARRIER Unavailable Unavailable Pleskach, Simin MEAT CARRIER Unavailable Unavailable Pleskach, Simin MEAT CARRIER Unavailable Unavailable Pleskach, Simin MEAT CARRIER Unavailable Unavailable Pleskach, Simin MEAT CARRIER Unavailable Unavailable Pleskach, Simin MEAT CARRIER Unavailable Unavailable Pleskach, Simin MEAT CARRIER Unavailable Unavailable Pleskach, Simin MEAT CARRIER Unavailable Unavailable Pleskach, Simin MEAT CARRIER Unavailable Unavailable Re-disclosure Warning The records that [...] is protected by Article 27-F of the [facility] Public Health law. If you continue you may have access to information: Regarding HIV / AIDS; Provided by facilities licensed or operated by the [facility] Office of Mental Health; or Provided by the [facility] Office for People With Developmental Disabilities. If such information is present, then the following [facility] mandated warning applies: This information has [...] law may result in a fine or fpc sentence or both. A general authorization for the release of medical or other information is NOT sufficient authorization for further disc losure. 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[place]) Encounters Encounter Providers Location Date Indications Data Source(s ) Outpatient Attender: Simin Gu [facility] Main Office 11/16/2019 0 8:30:00 AM [...] to sampson Policy Sampson Plan Information MEDICARE [id number] SP [id number] FOR LIFE [id number] SP [id number] SELF PAY ONLY [id number] SP [id number] [place] Medigap Part B [id number] Self [id number] For Life Medigap Part B [id number] Self [id number] Medicare Medigap Part B [id number] Self [id number] Medicare Medicare Primary [id number] Self [id number] For Life Medigap Part B [id number] [facility] [id number] [place] Primary [id number] Self [id number] MEDICARE [id number] SP [id number] A [place] Medigap Part B [id number] Self [id number] For Life Medigap Part B [id number] Self [id number] Medicare Medigap Part B [id number] Self [id number] Medicare Medicare Primary [id number] Self [id number] [place] Medigap Part B [id number] Self [id number] For Life Medigap Part B [id number] Self [id number] Medicare Medicare Primary [id number] Self [id number] For Life Medigap Part B [id number] Self [id number] [place] Primary [id number] Self [id number] [place] Medigap Part B [id number] Self [id number] [id number] For Life Medigap Part B [id number] Self [id number] Medicare Medicare Primary [id number] Self [id number] [place] Medigap Part B [id number] Self [id number] For Life Medigap Part B [id number] Self [id number] Medicare Medicare Primary [id number] Self 08 [id number] For Life Medigap Part B [id number] Self [id number] [place] Medicare Primary [id number] Self [id number] For Life Medigap Part B [id number] Self [id number] [place] Medicare Primary [id number] Self [id number] [place] Medicare Primary Self Health Net Federal [employer] Commercial Self [place] [employer]) Medigap Part B Self Medicare [facility] Medicare Primary Self Medicare Medicare Primary Self ACTIVE DUTY [id number] SP [id number] Results ID Date Data Source [id number] 02/16/2020 09:48:00 AM EST [facility] ([facility] Name Value Range Interpretation Code Description Data Bianca rce(s) Supporting Document(s) Prostate specific Ag [Mass/volume] in Serum or Plasma 3.02 ng/mL [facility] ([facility] The PSA assay is performed on the netomatta analyzer by [employer] sandwich chemiluminescent immunoassay and should not be compared interchangeably with other methods. It should not be used alone as a screening test or diagnosis for the presence or absence of malignant disease. Predictions of disease recurrence should not be based solely on values obtained from serial patient serum values. ID Date Data Source [id number] 02/16/2020 09:48:00 AM EST [facility] ([facility] Name Value Range Interpretation Code Description Data Bianca rce(s) Supporting Document(s) Thyrotropin [Units/volume] in Serum or Plasma 7.620 uIU/ML 0.358-3.74 0 [facility] ([facility] Thyroxine (T4) free [Mass/volume] in Serum or Plasma 0.97 ng/dL 0.76- 1.46 [facility] ([facility] ID Date Data Source [id number] 01/17/2020 12:00:00 AM EST [facility] Name Value Range Interpretation Code Description Data Bianca rce(s) Supporting Document(s) 2019-nCoV RNA XXX JUAN JOSÉ+probe[facility]Imp [facility] This lab was ordered by [facility] and reported by [facility]. ID Date Data Source [id number] 08/11/2019 10:21:00 AM EDT [facility] ([facility] Name Value Range Interpretation Code Description Data Bianca rce(s) Supporting Document(s) Thyroxine (T4) [Mass/volume] in Serum or Plasma 11.0 ug/dL 4.5-12.0 [facility] ([facility] Thyrotropin [Units/volume] in Serum or Plasma 6.030 uIU/ML 0.358-3.74 0 [facility] ([facility] ID Date Data Source [id number] 04/22/2019 07:50:00 AM EDT [facility] ([facility] Name Value Range Interpretation Code Description Data Bianca rce(s) Supporting Document(s) Free T4 1.12 ng/dL 0.76-1.46 [facility] ([facility] Thyroid Stimulating Hormone 9.930 uIU/ML 0.358-3.740 [facility] ([facility] ID Date Data Source [id number] 04/22/2019 07:50:00 AM EDT [facility] ([facility] Name Value Range Interpretation Code Description Data Bianca rce(s) Supporting Document(s) Prostate specific Ag [Mass/volume] in Serum or Plasma 2.43 ng/mL [facility] ([facility] The PSA assay is performed on the [place] analyzer by [employer] sandwich chemiluminescent immunoassay and should not be compared interchangeably with other methods. It should not be used alone as a screening test or diagnosis for the presence or absence of malignant disease. Predictions of disease recurrence should not be based solely on values obtained from serial patient serum values. ID Date Data Source [id number] 04/22/2019 07:50:00 AM EDT [facility] ([facility] Deng [...] [facility] ID Date Data Source [id number] 04/22/2019 07:50:00 AM EDT [facility] ([facility]orrie Deng [...] Little GFR Left</content>
<content>ESRD GFR <15 on MALE INFERTILITY SPECIALIST</content>
<content></content> Potassium Serum 4.3 meq/L 3.5-5.1 [facility] [...] k g/m2 [facility] ([facility] [place] body weight 148 [lb_av] 148 [lb_av] MEDEN [...] Body temperature 97.5 [degF] 97.5 [degF] [facility] ([facility] Heart rate 81 /min 81 /min [facility] ([facility] Diastolic blood pressure 76 mm[Hg] 76 mm[Hg] [facility] ([facility] Systolic blood pressure 142 mm[Hg] 142 mm[Hg] M EDENT ([facility] Body mass index (BMI) [Ratio] 28.4 kg/m2 28.4 k g/m2 [facility] ([facility] [place] body weight 148 [lb_av] 148 [lb_av] MEDEN [...]
[2020-02-27 18:00] LABS: ALBUMIN 4.2 GM/DL (3.2-5.2); ALT/SGPT 36 U/L (12-78); BILIRUBIN,DIRECT 0.1 MG/DL (0.0-0.2); BILIRUBIN,TOTAL 0.3 MG/DL (0.2-1.0); BLOOD UREA NITROGEN 13 MG/DL (7-18); CARBON DIOXIDE LEVEL 29 MEQ/L (21-32); CHLORIDE LEVEL 108 MEQ/L (98-107); CK-MB VALUE MASS 2.7 NG/ML (<3.6); CPK CREATINE PHOSPHOKINASE 153 U/L (39-308); FREE T4 0.95 NG/DL (0.76-1.46); GLOMERULAR FILTRATION RATE > 60.0 (>42); GLUCOSE, FASTING 109 MG/DL (70-100); MB/CK RELATIVE INDEX 1.76 (< OR =4); SODIUM LEVEL 141 MEQ/L (136-145); TROPONIN I < 0.02 NG/ML (< 0.10)
[2020-02-27 18:15] VITALS: BP 164/89
--- NOTE | 2020-02-27 20:02 | ECGEPIP ---
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
== END 2020-02-27 18:36 | disposition home or self-care (01) ==
LOC: M ED 15:30
DX: R55 Syncope and collapse (principal); E78.5 Hyperlipidemia, unspecified; I10 Essential (primary) hypertension

== ENCOUNTER → 2020-05-16 | Outpatient (CLI) | payer MEDICARE, OTHER ==
[2020-05-16 09:38] LABS: ALBUMIN 3.9 GM/DL (3.2-5.2); ALT/SGPT 34 U/L (12-78); BILIRUBIN,TOTAL 0.3 MG/DL (0.2-1.0); BLOOD UREA NITROGEN 19 MG/DL (7-18); CALCIUM LEVEL 9.4 MG/DL (8.8-10.2); CARBON DIOXIDE LEVEL 29 MEQ/L (21-32); CHLORIDE LEVEL 108 MEQ/L (98-107); CHOLESTEROL LEVEL 166 MG/DL (<200); CHOLESTEROL RISK RATIO 2.862 (<5); CREATININE FOR GFR 0.87 MG/DL (0.70-1.30); GLOMERULAR FILTRATION RATE > 60.0 (>42); GLUCOSE, FASTING 83 MG/DL (70-100); HDL CHOLESTEROL 58 MG/DL (>40); LDL CHOLESTEROL 90 MG/DL (<100); NON-HDL-C 108 MG/DL; POTASSIUM SERUM 4.4 MEQ/L (3.5-5.1); SODIUM LEVEL 141 MEQ/L (136-145); TOTAL PROTEIN 7.3 GM/DL (6.4-8.2); TRIGLYCERIDES LEVEL 89 MG/DL (<150)
== END ==
LOC: M LAB 08:19
PROVIDERS: ATTEND Nurse Practitioner Family
DX: E03.9 Hypothyroidism, unspecified (principal); E78.2 Mixed hyperlipidemia; R97.20 Elevated prostate specific antigen [PSA]; I10 Essential (primary) hypertension
CPT/HCPCS: 80053; 80061; 84439; 84443; G0103

== ENCOUNTER 2020-09-13 13:57 | Emergency (ER) | payer MEDICARE, OTHER ==
[~2020-09-13] VITALS: Ht 177.8 cm; Wt 79.5 kg
[2020-09-13 15:42] LABS: BASO % 0.6 % (0.0-1.0); EOS # 0.1 10^3/uL (0.0-0.5); EOS % 0.9 % (0.0-3.0); HEMATOCRIT 46.6 % (42.0-52.0); HEMOGLOBIN 15.5 g/dl (13.5-17.5); LYMPH # 1.2 10^3/uL (1.5-5.0); LYMPH % 17.6 % (24.0-44.0); MEAN CORPUSCULAR HEMOGLOBIN 29.7 pg (27.0-33.0); MEAN CORPUSCULAR HGB CONC 33.3 g/dl (32.0-36.5); MEAN CORPUSCULAR VOLUME 89.3 fl (80.0-96.0); MONO # 0.7 10^3/uL (0.0-0.8); MONO % 9.9 % (2.0-8.0); NEUTROPHILS # 4.9 10^3/uL (1.5-8.5); NEUTROPHILS % 70.6 % (36.0-66.0); PLATELET COUNT, AUTOMATED 316 10^3/uL (150-450); RED BLOOD COUNT 5.22 10^6/uL (4.30-6.10); WHITE BLOOD COUNT 6.9 10^3/uL (4.0-10.0)
[2020-09-13 16:19] LABS: ALBUMIN 4.2 GM/DL (3.2-5.2); ALT/SGPT 32 U/L (12-78); BILIRUBIN,DIRECT < 0.1 MG/DL (0.0-0.2); BILIRUBIN,TOTAL 0.2 MG/DL (0.2-1.0); BLOOD UREA NITROGEN 12 MG/DL (7-18); CALCIUM LEVEL 9.1 MG/DL (8.8-10.2); CARBON DIOXIDE LEVEL 24 MEQ/L (21-32); CHLORIDE LEVEL 109 MEQ/L (98-107); CK-MB VALUE MASS 2.3 NG/ML (<3.6); CPK CREATINE PHOSPHOKINASE 222 U/L (39-308); CREATININE FOR GFR 0.85 MG/DL (0.70-1.30); FREE T4 0.96 NG/DL (0.76-1.46); GLOMERULAR FILTRATION RATE > 60.0 (>42); GLUCOSE, FASTING 101 MG/DL (70-100); MB/CK RELATIVE INDEX 1.04 (< OR =4); POTASSIUM SERUM 4.2 MEQ/L (3.5-5.1); SODIUM LEVEL 141 MEQ/L (136-145); TROPONIN I < 0.02 NG/ML (< 0.10)
[2020-09-13 16:48] VITALS: BP 153/78
== END 2020-09-13 17:15 | disposition home or self-care (01) ==
LOC: EDBD 13:57 → M ED 13:57
DX: R42 Dizziness and giddiness (principal); I10 Essential (primary) hypertension; E78.5 Hyperlipidemia, unspecified; Z79.82 Long term (current) use of aspirin; Z79.899 Other long term (current) drug therapy

== ENCOUNTER → 2020-11-28 | Outpatient (CLI) | payer MEDICARE, OTHER ==
[2020-11-28 10:19] LABS: BLOOD UREA NITROGEN 17 MG/DL (7-18); CARBON DIOXIDE LEVEL 28 MEQ/L (21-32); CHLORIDE LEVEL 108 MEQ/L (98-107); CREATININE FOR GFR 0.97 MG/DL (0.70-1.30); FREE T4 0.94 NG/DL (0.76-1.46); GLOMERULAR FILTRATION RATE > 60.0 (>42); GLUCOSE, FASTING 83 MG/DL (70-100); POTASSIUM SERUM 4.4 MEQ/L (3.5-5.1); SODIUM LEVEL 141 MEQ/L (136-145)
== END ==
LOC: M LAB 08:16
PROVIDERS: ATTEND Nurse Practitioner Family
DX: I10 Essential (primary) hypertension (principal); E03.9 Hypothyroidism, unspecified; E78.2 Mixed hyperlipidemia

== ENCOUNTER → 2024-03-23 | Outpatient (REF) | payer MEDICARE, OTHER ==
[2024-03-23 20:42] LABS: APPEARANCE, URINE CLEAR (CLEAR); BACTERIA, URINE AUTO NEGATIVE (NEGATIVE); BILIRUBIN, URINE AUTO NEGATIVE (NEGATIVE); BLOOD, URINE BLOOD NEGATIVE (NEGATIVE); COLOR, URINE YELLOW (YELLOW); GLUCOSE, URINE (UA) AUTO NEGATIVE (NEGATIVE); KETONE, URINE AUTO TRACE mg/dL (NEGATIVE); LEUKOCYTE ESTERASE, URINE AUTO NEGATIVE (NEGATIVE); NITRITE, URINE AUTO NEGATIVE (NEGATIVE); PROTEIN, URINE AUTO NEGATIVE (NEGATIVE); RBC, URINE AUTO 1 /HPF (0-3); SPECIFIC GRAVITY URINE AUTO 1.012 (1.002-1.035); SQUAMOUS EPITHELIAL CELL UR AU 0 /HPF (0-6); UROBILINOGEN, URINE AUTO 0.2 mg/dL (0.0-2.0); WBC, URINE AUTO 1 /HPF (0-3)
== END ==
LOC: M LAB REF 19:59
PROVIDERS: ATTEND Physician Assistant
DX: N39.0 Urinary tract infection, site not specified (principal)